=== PATIENT | male | born 1950 | race Caucasian/White ===

== ENCOUNTER 2017-02-15 12:17 | Emergency (ER) | payer MEDICAID ==
--- NOTE | 2017-02-22 15:15 | ER ---
ADMIT: 02/15/2017 RM/LOC: ER [facility] MR#: [id number] [facility] [address] [place], [place] [id number] BERNIE CONNOLLY [address] [address] Emergency Room Report SEX: M AGE: 66 : 1950 DATE: 02/15/2017 ADDENDUM: This patient comes to the ER because for the last week, he has had pain in his right knee. He denies any injury, but he feels when he bends it, it is very gravelly inside the joint. He does note that he has arthritis. He has had no fevers or vomiting. PHYSICAL EXAM: There is some swelling in the right knee. It does not feel warm to palpation and he does have pain along the medial aspect of the knee. He does ambulate. Pulses are equal bilaterally in lower extremities. Sensation is intact. X-ray was negative for any fractures. DIAGNOSIS: Right knee pain. DISCUSSION: We will have him take ibuprofen over the counter, ice, and elevate. He was placed in an Danny wrap here in the ER. I wrote a prescription for tramadol. He is to follow up with Dr. Thomason in the next week if not feeling better. Please see my T-sheet. REID Laird / Kailash Rivera MD / bryanl JOB #: [id number] CC: Kailash Rivera MD, Attending Physician
== END 2017-02-15 14:15 | disposition home or self-care (01) ==
LOC: ER 12:17
DX: M25.561 Pain in right knee (principal); I10 Essential (primary) hypertension; E11.9 Type 2 diabetes mellitus without complications; Z79.84 Long term (current) use of oral hypoglycemic drugs